=== PATIENT | male | born 1995 | race African-American/Black ===

== ENCOUNTER 2018-09-15 23:23 | Emergency (ER) | payer MEDICAID ==
[~2018-09-15] VITALS: Ht 175.3 cm; Wt 66.0 kg
[2018-09-15 23:37] VITALS: BP 134/68
== END 2018-09-16 01:00 | disposition home or self-care (01) ==
LOC: ER 23:23
DX: F41.0 Panic disorder [episodic paroxysmal anxiety] (principal); R00.2 Palpitations; F20.9 Schizophrenia, unspecified
CPT/HCPCS: 93005; 99283